=== PATIENT | male | born 1980 | race Caucasian/White ===

== ENCOUNTER 2017-09-07 07:34 | Inpatient (IN) | payer OTHER ==
[2017-09-07] MEDS ORDERED: HYDROmorphONE 0.5 MG/0.5 ML SYG IV (10:00)
[2017-09-07] MEDS ORDERED: NALOXONE (0.4 MG/ML) INJ IV (10:00)
[2017-09-07] MEDS ORDERED: DIPHENHYDRAMINE 50 MG INJ IV ×2 (10:00→11:00)
[2017-09-07] MEDS ORDERED: HYDROCODONE/APAP (10/325) TAB PO (10:00)
[2017-09-07] MEDS ORDERED: CEPASTAT LOZENGE MT (10:00)
[2017-09-07] MEDS ORDERED: AL HYDROX/MG HYDROX/SIMETH 30 ML CUP PO (10:00)
[2017-09-07] MEDS ORDERED: BISACODYL 10 MG SUPP PR (10:00)
[2017-09-07] MEDS ORDERED: ACETAMINOPHEN 325 MG TAB PO (10:00)
[2017-09-07] MEDS ORDERED: GLYCOPYRROLATE 0.4 MG INJ (10:16)
[2017-09-07] MEDS ORDERED: NEOSTIGMINE 3 MG/3 ML SYRINGE (10:16)
[2017-09-07] MEDS ORDERED: ROCURONIUM 50 MG INJ (10:16)
[2017-09-07] MEDS ORDERED: PROPOFOL 20 ML (10:16)
[2017-09-07] MEDS ORDERED: CEFAZOLIN 1 GM INJ (10:16)
[2017-09-07] MEDS ORDERED: DEXAMETHASONE 4 MG/ML 1 ML INJ (10:17)
[2017-09-07] MEDS ORDERED: MIDAZOLAM 1 MG/ML 2 ML INJ (10:17)
[2017-09-07] MEDS ORDERED: ONDANSETRON 4 MG INJ (10:17)
[2017-09-07] MEDS: BUPIVACAINE 0.5%/EPI (SDV) 30 ML INJ (10:40)
[2017-09-07] MEDS ORDERED: TRIMETHOBENZAMIDE 100 MG/ML VIAL IM (11:00)
[2017-09-07] MEDS ORDERED: FENTAnyl 50 MCG/ML VIAL IV (11:00)
[2017-09-07] MEDS ORDERED: EPHEDrine SULFATE 50 MG/5 ML SYG IV (11:00)
[2017-09-07] MEDS ORDERED: IPRATROPIUM (NEB) 0.5 MG/2.5 ML AMP HHN (11:00)
[2017-09-07] MEDS ORDERED: ALBUTEROL 0.083% (NEB) 2.5 MG/3 ML AMP HHN (11:00)
[2017-09-07] MEDS ORDERED: HYDROmorphONE 1 MG/5 ML IV SYRINGE IV ×3 (11:00)
[2017-09-07] MEDS ORDERED: MEPERIDINE 25 MG INJ IV (11:00)
[2017-09-07] MEDS ORDERED: OXYCODONE/ACETAMINOPHEN (5/325) TAB PO ×2 (11:00)
[2017-09-07] MEDS ORDERED: hydrALAzine 20 MG INJ IV (11:00)
[2017-09-07] MEDS ORDERED: LABETALOL HCL 20MG INJ IV (11:00)
[2017-09-07] MEDS ORDERED: MIDAZOLAM 1 MG/ML 2 ML INJ IV (11:00)
[2017-09-07] MEDS: THROMBIN 5000 UNIT VIAL ×2 (11:18→13:43)
[2017-09-07] MEDS: SURGIFOAM POWDER 1 GM KIT ×2 (11:18→13:43)
[2017-09-07] MEDS: POLYMYXIN/BACITRACIN 1L IRRIG (11:19)
[2017-09-07] MEDS: CA CHLORIDE 10% 10 ML SYRINGE (11:20)
[2017-09-07] MEDS ORDERED: FENTAnyl 50 MCG/ML VIAL (13:20)
[2017-09-07] MEDS: BUPIVACAINE 0.25% (MPF) 30 ML INJ (13:42)
[2017-09-07] MEDS: FENTAnyl 50 MCG/ML VIAL (13:42)
[2017-09-07] MEDS: HEPARIN 1000 UNITS/ML 10 ML INJ (13:44)
[2017-09-07] MEDS ORDERED: SUGAMMADEX SODIUM 200 MG/2 ML VIAL IV (14:00)
[2017-09-07] MEDS ORDERED: METOCLOPRAMIDE 10 MG INJ (14:13)
[2017-09-07] MEDS: ONDANSETRON 4 MG INJ IV ×2 (14:56→18:22)
[2017-09-07] MEDS: FENTAnyl 50 MCG/ML VIAL IV ×2 (14:57→15:33)
[2017-09-07] MEDS: HYDROmorphONE 0.2 MG/ML PCA IV (15:06)
[2017-09-07] MEDS: CEFAZOLIN 1 GM/50 ML (PMX) 50 ML IVPB ×2 (16:09→18:30)
[2017-09-07] MEDS: D5W-0.45 NACL + KCL 20 MEQ 1,000 ML IV (17:22)
[2017-09-07] MEDS ORDERED: ZOLPIDEM 5 MG TAB PO (21:00)
[2017-09-07] MEDS: DOCUSATE SODIUM 100 MG CAP PO (21:30)
[2017-09-08] MEDS: CEFAZOLIN 1 GM/50 ML (PMX) 50 ML IVPB (01:17)
[2017-09-08] MEDS: D5W-0.45 NACL + KCL 20 MEQ 1,000 ML IV ×3 (03:45→15:39)
[2017-09-08] MEDS: PANTOPRAZOLE 40 MG INJ IV (05:09)
[2017-09-08 06:01] LABS: ADD MAN DIFF? NO
[2017-09-08 06:05] LABS: BASOPHILS % 0.1 % (0.0-2.0); HEMOGLOBIN 12.9 g/dl (14.0-18.0); LYMPHOCYTES # 1.4 10^3/ul (0.8-2.9); LYMPHOCYTES % 8.8 % (15.0-51.0); MEAN CORPUSCULAR HEMOGLOBIN 30.8 pg (29.0-33.0); MEAN CORPUSCULAR HGB CONC 34.9 g/dl (32.0-37.0); MEAN CORPUSCULAR VOLUME 88.3 fl (82.0-101.0); MEAN PLATELET VOLUME 9.9 fl (7.4-10.4); MONOCYTE # 0.6 10^3/ul (0.3-0.9); MONOCYTES % 3.5 % (0.0-11.0); NEUTROPHIL # 13.8 10^3/ul (1.6-7.5); NEUTROPHILS % 87.2 % (39.0-77.0); PLATELET COUNT 206 10^3/UL (140-415); RED BLOOD COUNT 4.19 10^6/ul (4.70-6.10); RED CELL DISTRIBUTION WIDTH 12.1 % (11.5-14.5)
[2017-09-08 06:05] LABS: WHITE BLOOD COUNT 15.8 10^3/ul (4.8-10.8)
[2017-09-08 06:45] LABS: ANION GAP 13 (8-16); CALCIUM 8.7 mg/dl (8.4-10.2); CARBON DIOXIDE 24 mmol/L (21-31); CHLORIDE 108 mmol/L (97-110); CREATININE 0.82 mg/dl (0.61-1.24); GLUCOSE 140 mg/dl (70-220); MAGNESIUM 1.8 mg/dl (1.7-2.5); POTASSIUM 4.2 mmol/L (3.5-5.1); SODIUM 141 mmol/L (135-144)
[2017-09-08 08:14] LABS: BLOOD UREA NITROGEN 12 mg/dl (7-20)
[2017-09-08] MEDS: DOCUSATE SODIUM 100 MG CAP PO (09:44)
[2017-09-08 11:13] LABS: ADD UMIC YES; UR ASCORBIC ACID NEGATIVE (NEGATIVE); UR BILIRUBIN (Dip) NEGATIVE (NEGATIVE); UR BLOOD (Dip) 1+ mg/dL (NEGATIVE); UR CLARITY CLEAR (CLEAR); UR COLOR STRAW (YELLOW); UR GLUCOSE (Dip) NEGATIVE (NEGATIVE); UR KETONES (Dip) NEGATIVE (NEGATIVE); UR LEUKOCYTE ESTERASE (Dip) NEGATIVE Leu/ul (NEGATIVE); UR NITRITE (Dip) NEGATIVE (NEGATIVE); UR RBC 2 /HPF (0-5); UR SPECIFIC GRAVITY (Dip) 1.009 (1.003-1.030); UR TOTAL PROTEIN (Dip) NEGATIVE (NEGATIVE); UR UROBILINOGEN (Dip) NEGATIVE (NEGATIVE); UR WBC 0 /HPF (0-5)
[2017-09-08] MEDS: HYDROCODONE/APAP (10/325) TAB PO ×4 (11:22→20:09)
[2017-09-08] MEDS: METHOCARBAMOL 500 MG TAB PO (14:06)
== END 2017-09-08 20:25 | disposition home or self-care (01) | DRG 520 ==
LOC: REC 07:34 → MS1 16:39
PROC: 0SB20ZZ Excision of Lumbar Vertebral Disc, Open Approach (ICD-10-PCS; principal; 2017-09-07 10:00)
PROC: 0SB40ZZ Excision of Lumbosacral Disc, Open Approach (ICD-10-PCS; 2017-09-07 10:00)
PROC: 01NB0ZZ Release Lumbar Nerve, Open Approach (ICD-10-PCS; 2017-09-07 10:00)
PROC: 4A11X4G Monitoring of Peripheral Nervous Electrical Activity, Intraoperative, External Approach (ICD-10-PCS; 2017-09-07 10:00)
DX: M51.16 Intervertebral disc disorders with radiculopathy, lumbar region (principal); M51.17 Intervertebral disc disorders with radiculopathy, lumbosacral region; M48.061 Spinal stenosis, lumbar region without neurogenic claudication; M48.07 Spinal stenosis, lumbosacral region
CPT/HCPCS: 72100; 80048; 81001; 83735; 85025; 86999; 87086; 97110; 97116; 97161; 97530